=== PATIENT | female | born 1955 | race African-American/Black ===

== ENCOUNTER 2018-12-06 06:00 | Day surgery (SDC) | payer OTHER, BC ==
[2018-12-05 14:31] VITALS: BMI 35.8
[2018-12-06] MEDS ORDERED: CEFAZOLIN 1 GM/D5W 1 GM/50 ML BAG ONE (07:07)
[2018-12-06] MEDS ORDERED: BUPIVACAINE HCL/PF 0.25% (2.5MG/ML) 10 ML VIAL ONE (07:45)
[2018-12-06] MEDS ORDERED: BUPIVACAINE LIPOSOME/PF (EXPAREL) 266 MG/20 ML VIAL ONE (07:45)
[2018-12-06] MEDS ORDERED: MIDAZOLAM HCL 2 MG/2 ML SINGLE DOSE VIAL ONE ×2 (07:46)
[2018-12-06] MEDS ORDERED: SODIUM BICARBONATE 8.4% - 50 ML ONE (07:58)
[2018-12-06] MEDS ORDERED: EPINEPHrine/PF 1 MG/1 ML (1:1,000) AMPULE ONE (07:58)
[2018-12-06] MEDS ORDERED: ONDANSETRON 4 MG/2 ML VIAL ONE (07:58)
[2018-12-06] MEDS ORDERED: SUCCINYLCHOLINE CHLORIDE 200 MG/10 ML SYRINGE ONE (07:58)
[2018-12-06] MEDS ORDERED: DEXAMETHASONE SOD PHOSPHATE 4 MG/1 ML VIAL ONE ×2 (07:58→08:55)
[2018-12-06] MEDS ORDERED: ROCURONIUM BROMIDE 50 MG/5 ML SYRINGE ONE (07:58)
[2018-12-06] MEDS ORDERED: fentaNYL CITRATE 250 MCG/5 ML VIAL ONE (07:58)
[2018-12-06] MEDS ORDERED: PROPOFOL 20 ML ONE ×3 (07:58→08:47)
[2018-12-06] MEDS ORDERED: LIDOCAINE HCL/PF 2% SDV 5ML VIAL ONE (07:58)
[2018-12-06] MEDS ORDERED: LIDOCAINE HCL 2% (20ML MULTI-DOSE VIAL) NR ONE (07:58)
--- NOTE | 2018-12-06 08:25 | HP ---
DATE OF ADMISSION: 12/06/2018 REQUESTING PHYSICIAN: Britney Goddard M.D. HISTORY OF PRESENT ILLNESS: This is a 63-year-old female whom I had seen in July of this year. She has a large, chronically incarcerated, complex ventral incisional hernia that was to be repaired. Please refer to my original H&P for complete details. PAST MEDICAL HISTORY: Hypertension, hypercholesterolemia. PAST SURGICAL HISTORY: and as mentioned in my original H&P. MEDICATIONS: Lisinopril. ALLERGIES: None. SOCIAL HISTORY: She smokes 1 cigarette a day and drinks socially. PHYSICAL EXAMINATION: She was examined in the erect and supine positions, and placed through multiple Valsalva maneuvers. The abdomen is obese, soft, nontender, nondistended. She has a large chronically incarcerated ventral hernia, the size of a softball, in the upper aspect of the incision. Her umbilicus is completely distorted. She has multiple abdominal folds in the lower abdominal abdomen and poorly healed midline scar and scar. She has an ostomy takedown site in the left hemiabdomen as well. There are no obvious defects at the ostomy site. IMPRESSION/PLAN: Chronically incarcerated complex ventral hernia. She is now here for operative repair. Again, refer to my original history and physical for complete details. This is a redictation due to CMS guidelines. RAFAT RICHMOND M.D. [id number] MTDD
--- NOTE | 2018-12-06 10:23 | PN ---
Progress Note (short form) - Note Progress Note: 63F smoker presents for ventral hernia repair and abdominoplasty. Pre-op, pt states h/o difficult intubation. Pt coughing but denies fever or SOB so proceed to OR. Prior anesthetic record from 10y ago shows difficult intubation, but able to intubate using glidescope. In OR, glidescope intubation unsuccessful secondary to very large tonsils and/ or adenoids, and other redundant oropharyngeal tissue. Pt's larynx is also very anterior and very deep. Pt remained easy mask ventilation with oral airway and did not significantly desaturate during attempts. Decision made to wake patient up and refer to ENT for tonsillectomy/adenoidectomy. Decadron given, IVF restriction, humidified O2 and sitting upright to decrease chance of airway swelling. In PACU states that prior to last general anesthetic she was given a course of antibiotics to "shrink her tonsils", but not this time. Recommend referral to an ENT at this hospital as this patient is now known to us. Recommend awake nasal fiberoptic for any future intubations. Patient and surgeon aware. Will monitor patient in pacu for airway edema, and repeat steroids this afternoon.
[2018-12-06 14:35] VITALS: BP 160/91; PULSE 90; TEMP 98.4
== END 2018-12-06 13:20 | disposition home or self-care (01) ==
LOC: JASUSAT 06:00
PROVIDERS: ATTEND Surgery
PROC: 0WQF0ZZ Repair Abdominal Wall, Open Approach (ICD-10-PCS; principal; 2018-12-06 08:00)
DX: K43.9 Ventral hernia without obstruction or gangrene (principal); J35.3 Hypertrophy of tonsils with hypertrophy of adenoids; Z53.8 Procedure and treatment not carried out for other reasons
CPT/HCPCS: 86850; 86900; 86901; 94760

== ENCOUNTER 2018-12-21 06:08 | Inpatient (IN) | payer OTHER, BC | END 2018-12-23 14:02 | disposition home or self-care (01) | LOC: JASU-SURG 06:08 → JASUSAT 15:18 → J6S 12-22 16:15 ==

== ENCOUNTER 2021-07-28 04:22 | Inpatient (IN) | payer OTHER, BC ==
[2021-07-27 11:48] VITALS: BMI 35.4
[2021-07-28] MEDS ORDERED: ONDANSETRON 4 MG/2 ML VIAL IVPUSH PRN ×2 (12:06→12:08)
[2021-07-28] MEDS ORDERED: IBUPROFEN 600 MG TABLET (FP) PO PRN (12:06)
[2021-07-28] MEDS ORDERED: oxyCODONE HCL 5 MG TABLET PO PRN ×2 (12:06→12:08)
[2021-07-28] MEDS ORDERED: IBUPROFEN 800 MG/8 ML IJ IVPB PRN (12:06)
[2021-07-28] MEDS ORDERED: PROMETHAZINE HCL 25 MG/1 ML VIAL IVPB PRN (12:08)
[2021-07-28] MEDS ORDERED: ELECTROLYTE-148 SOLN 1,000 ML IV SCH (12:15)
[2021-07-28] MEDS ORDERED: LACTATED RINGERS SOLUTION 1,000 ML IV SCH (12:15)
[2021-07-28] MEDS ORDERED: PROPOFOL 20 ML ONE ×3 (12:21→13:07)
[2021-07-28] MEDS ORDERED: MIDAZOLAM HCL 2 MG/2 ML SINGLE DOSE VIAL ONE ×2 (12:22→13:02)
[2021-07-28] MEDS ORDERED: LIDOCAINE HCL/PF 2% SDV 5ML VIAL ONE (12:22)
[2021-07-28] MEDS ORDERED: GLYCOPYRROLATE 0.2 MG/1 ML VIAL ONE (12:22)
[2021-07-28] MEDS ORDERED: DEXAMETHASONE SOD PHOSPHATE 4 MG/1 ML VIAL ONE (12:44)
[2021-07-28] MEDS ORDERED: SUCCINYLCHOLINE CHLORIDE 200 MG/10 ML SYRINGE ONE (12:46)
[2021-07-28] MEDS ORDERED: KETOROLAC TROMETHAMINE 30 MG/1 ML VIAL ONE (13:23)
[2021-07-28] MEDS ORDERED: METOPROLOL TARTRATE 5 MG/5 ML VIAL ONE (13:31)
[2021-07-28] MEDS ORDERED: hydrALAZINE HCL 20 MG/ML VIAL ONE (14:20)
[2021-07-28] MEDS ORDERED: LABETALOL HCL 5 MG/1 ML (100MG/20 ML VIAL) IVPUSH ONE (18:00)
[2021-07-28] MEDS ORDERED: SODIUM CHLORIDE NASAL SPRAY 44 ML BOTTLE NS PRN (21:30)
[2021-07-28] MEDS: DEXAMETHASONE SOD PHOSPHATE 10 MG/1 ML VIAL IVPUSH SCH (22:08)
[2021-07-29] MEDS: DEXAMETHASONE SOD PHOSPHATE 10 MG/1 ML VIAL IVPUSH SCH ×4 (02:42→21:27)
[2021-07-29 07:24] LABS: HEMATOCRIT 43.4 % (32.4-45.2); HEMOGLOBIN 14.4 GM/dL (10.7-15.3); MCH 27.8 pg (25.7-33.7); MCHC 33.1 g/dl (32.0-36.0); MEAN CELL VOLUME 83.9 fl (80-96); MEAN PLT VOLUME 8.4 fl (7.5-11.1); PLATELET COUNT 243 10^3/uL (134-434); RBC 5.18 M/mm3 (3.60-5.2); RDW 13.7 % (11.6-15.6); WHITE BLOOD COUNT 10.9 K/mm3 (4.0-10.0)
[2021-07-29 07:33] LABS: CALCIUM 9.1 mg/dL (8.5-10.1)
[2021-07-29 07:34] LABS: BLOOD UREA NITROGEN 18.4 mg/dL (7-18)
[2021-07-29] MEDS: amLODIPine BESYLATE 5 MG TABLET (FP) PO SCH (09:55)
[2021-07-29] MEDS: LISINOPRIL 5 MG TABLET PO SCH (09:55)
[2021-07-30] MEDS: DEXAMETHASONE SOD PHOSPHATE 10 MG/1 ML VIAL IVPUSH SCH (05:30)
[2021-07-30] MEDS: amLODIPine BESYLATE 5 MG TABLET (FP) PO SCH (09:11)
[2021-07-30] MEDS: LISINOPRIL 5 MG TABLET PO SCH (09:11)
[2021-07-30] MEDS: DEXAMETHASONE 4 MG TABLET (FP) PO SCH ×2 (13:43→22:06)
[2021-07-30] MEDS ORDERED: LISINOPRIL 10 MG TABLET PO SCH (15:40)
[2021-07-31] MEDS: DEXAMETHASONE 4 MG TABLET (FP) PO SCH ×3 (06:00→21:42)
[2021-07-31] MEDS: LISINOPRIL 10 MG TABLET PO SCH ×2 (09:04→21:42)
[2021-07-31] MEDS: amLODIPine BESYLATE 5 MG TABLET (FP) PO SCH (09:04)
[2021-07-31] MEDS ORDERED: amLODIPine BESYLATE 5 MG TABLET (FP) PO ONE (12:17)
[2021-08-01] MEDS: DEXAMETHASONE 4 MG TABLET (FP) PO SCH (06:50)
[2021-08-01] MEDS: LISINOPRIL 10 MG TABLET PO SCH (09:06)
[2021-08-01] MEDS ORDERED: amLODIPine BESYLATE 10 MG TABLET (FP) PO SCH (10:00)
[2021-08-01 10:07] VITALS: BP 172/66; PULSE 72
[2021-08-01 15:11] VITALS: TEMP 97.9
== END 2021-08-01 13:06 | disposition home or self-care (01) | DRG 989 ==
LOC: JASU-SURG 04:22 → SUATTDRO 04:22 → JASUSAT 04:22 → J2W 16:33 → JASUSAT 16:34
PROVIDERS: ADMIT Family Medicine; ATTEND Family Medicine
PROC: 0UDB7ZZ Extraction of Endometrium, Via Natural or Artificial Opening (ICD-10-PCS; principal; 2021-07-28 12:30)
DX: J38.1 Polyp of vocal cord and larynx (principal); R22.1 Localized swelling, mass and lump, neck; I10 Essential (primary) hypertension; E66.9 Obesity, unspecified; E78.5 Hyperlipidemia, unspecified; N93.9 Abnormal uterine and vaginal bleeding, unspecified; N84.0 Polyp of corpus uteri; G47.30 Sleep apnea, unspecified; R06.02 Shortness of breath; N95.0 Postmenopausal bleeding; Z68.35 Body mass index [BMI] 35.0-35.9, adult
CPT/HCPCS: 36415; 80048; 85027; 88305-TC; 94760; J1100